=== PATIENT | female | born 1985 ===

== ENCOUNTER 2016-09-01 09:17 | Observation (INO) | payer BC ==
[~2016-09-01 09:17] MED LIST: BUPIVACAINE/EPI 0.5% 30 ML SDV ONE; CLINDAMYCIN 900 MG/DEXTROSE 50 ML IV ONE; LR 1,000 ML IV ONE; PHENAZOPYRIDINE HCL 200 MG TAB PO ONE; SKIN ADHESIVE (DERMABOND) 1 EACH TP ONE
[2016-09-01] MEDS ORDERED: PROPOFOL/EMULSION 500 MG/50 ML BOTTLE IV ONE ×7 (09:49→14:43)
[2016-09-01] MEDS ORDERED: LIDOCAINE 2% 5 ML SDV ONE (09:49)
[2016-09-01] MEDS ORDERED: ROCURONIUM 100 MG/10 ML VIAL ONE ×2 (09:50→14:23)
[2016-09-01] MEDS ORDERED: LIDOCAINE 1% 5 ML SDV ID PRN (09:56)
[2016-09-01] MEDS ORDERED: LR 1,000 ML IV ONE (09:56)
[2016-09-01] MEDS ORDERED: CLINDAMYCIN 900 MG/DEXTROSE/50 ML BAG IV ONE (10:09)
[2016-09-01] MEDS ORDERED: PHENAZOPYRIDINE HCL 200 MG TAB ONE (10:09)
[2016-09-01] MEDS ORDERED: MIDAZOLAM 2 MG/2 ML VIAL ONE (10:34)
[2016-09-01] MEDS ORDERED: ALTEPLASE 2 MG VIAL IVP PRN (11:17)
[2016-09-01] MEDS ORDERED: fentaNYL 250 MCG/5 ML INJ ONE (11:53)
[2016-09-01] MEDS ORDERED: DEXAMETHASONE 4 MG/ML VIAL ONE (12:18)
[2016-09-01] MEDS ORDERED: ONDANSETRON 4 MG/2 ML VIAL ONE (12:19)
[2016-09-01] MEDS ORDERED: METHYLENE BLUE 0.5% 50 MG/10 ML AMP ONE (13:43)
[2016-09-01] MEDS ORDERED: ROCURONIUM 50 MG/5 ML VIAL ONE (14:23)
[2016-09-01] MEDS ORDERED: GLYCOPYRROLATE 0.2 MG/1 ML VIAL ONE ×2 (14:45)
[2016-09-01] MEDS ORDERED: NEOSTIGMINE METHYLSULFATE 5 MG/5 ML SYR ONE (14:46)
[2016-09-01] MEDS ORDERED: KETOROLAC 30 MG/1 ML SDV IVP ONE ×2 (15:09→18:00)
[2016-09-01] MEDS ORDERED: HYDROmorphONE/DILAUDID 1 MG/ML SYR IVP PRN (15:09)
[2016-09-01] MEDS ORDERED: ONDANSETRON 4 MG/2 ML VIAL IVP PRN (15:09)
[2016-09-01] MEDS ORDERED: HYDROCODONE/APAP 5/325 TAB PO PRN (15:09)
[2016-09-01] MEDS ORDERED: DIAZEPAM 10 MG/2 ML SYR IVP PRN (15:09)
--- NOTE | 2016-09-01 15:17 | POSTOPPROG ---
Post Op Note Date of Operation: 09/01/16 Surgeon: Scottie Christie Adjudication Specialist: Riri Richards Anesthesia: GET(General Endotracheal) Pre-op Diagnosis: Endometriosis, pelvic pain Post-op Diagnosis: Same Procedure: Robotic excision of endo, bilat ureterolysis, cystoscopy Findings: Severe endo, both ureters function at end of case. Inf/Abcess present in the surg proc area at time of surgery?: No EBL: Minimal Complications: None Specimen(s): endo
[2016-09-01] MEDS ORDERED: levOFLOXACIN 500 MG/DEXTROSE 100 ML IV SCH (15:30)
[2016-09-01] MEDS ORDERED: fentaNYL 100 MCG/2 ML INJ ONE (15:53)
--- NOTE | 2016-09-01 16:14 | GOP ---
[f rep st] OPERATIVE REPORT DATE OF OPERATION: 09/01/2016 SURGEON: Scottie Christie MD [facility] [employer] [facility] ASSISTANT: Riri Richards CFA. ANESTHESIA: General. PREOPERATIVE DIAGNOSIS: 1. Endometriosis. 2. Pelvic pain. 3. Dyspareunia. POSTOPERATIVE DIAGNOSIS: 1. Endometriosis. 2. Pelvic pain. 3. Dyspareunia. PROCEDURE PERFORMED: 1. Robotic excision of extensive pelvic peritoneum with endometriosis in posterior cul-de-sac, bila teral ovarian fossas, bilateral ureters, vaginal cuff, bladder, bilateral uterosacral ligaments. 2. Bilateral ureterolysis. 3. Excision of rectal lesion. 4. Excision of sigmoid lesions. 5. Cystotomy repair. 6. Cystoscopy. FINDINGS: SPECIMENS: Extensive pelvic peritoneum with endometriosis. ESTIMATED BLOOD LOSS: Less than 20 mL. DESCRIPTION OF PROCEDURE: The patient was taken to the operating room where she was identified. Ge neral anesthesia was administered and found to be adequate. She was then prepared and draped in nor mal sterile fashion in the lithotomy position. A Trejo catheter was placed in her bladder. A biman ual exam was performed. No obvious nodules were palpable. She did have an area at the right corner of the vaginal cuff which had created almost a tunnel cephalad about 1-1/2 to 2 cm. There was a sm aller one in the midline. A 1 cm infraumbilical incision was made through the prior surgical scar. The Veress needle with the CO2 gas lungs advanced into the peritoneal cavity. The abdomen was then insufflated with carbon di oxide gas. The 12 mm trocar, followed by the laparoscope were then inserted. The upper abdomen was examined. There was no evidence of endometriosis on either diaphragm, liver, stomach or gallbladde r. Two lateral ports were placed, 1 in the right and 1 in the left under direct visualization. She then was placed in Trendelenburg position and the da Pily robot docked on the left side. The inst ruments were then brought into the abdominal cavity under direct visualization. The patient was found to have extensive endometriosis along the vaginal cuff, both ureters, the post erior cul-de-sac, both ovarian fossas as well as the bladder dome. A bilateral ureterolysis was required. The peritoneum at the pelvic brim on the left was incised. The ureter was gently dissected free. The dissection was carried distally all the way to the bladde r. The pelvic sidewall and ovarian fossa endometriosis and underlying peritoneum as well as scar ti ssue was completely excised. As the dissection continued down to where the ureter entered the bladd er, there was scarring and endometriosis right at the junction and anteriorly. Very careful dissect ion was performed to excise all of the endometriotic lesion without injuring the ureter. The dissec tion laterally resulted in a 1 mm cystotomy which was repaired at the conclusion of the case. The p eritoneum and endometriosis were then excised from the central portion of the bladder as well as the vaginal cuff. A vaginal stent was placed to better identify the vaginal cuff. A similar procedure was then performed on the right side, requiring a complete ureterolysis from the pelvic brim down t o the bladder. Once this was lateralized again, the entire perineum with endometriosis and underlyi ng scar tissue was completely excised. She also had a nodular and scarred area of endometriosis on the right where the right ureter entered the bladder. This was also completely excised. The manager print ior cul-de-sac peritoneum was then completely excised by opening the vesicovaginal space. The disse ction was carried approximately 5 cm caudad to ensure all endometriosis was removed from the rectova ginal space. The patient had several lesions on the rectum and colon which also were excised. These extended antoinette n approximately 50% into the muscularis. The pelvis was then copiously irrigated with sterile salin e. The cystotomy was repaired with a [id number] suture of 3-0 Vicryl. The bladder was backfil led with saline mixed with methylene blue. No leakage was noted after the 1st layer repair. A 2nd imbricating layer was then performed also with 3-0 Vicryl. Both ureters were peristalsing normally. The abdomen and pelvis were once again reexamined, and no further evidence of endometriosis was se en. Two sheets of Interceed were placed over the surgical field and the pelvis to try to minimize p ostoperative adhesion formation. The robot was then undocked. The fascia was closed with 0 Vicryl, skin with 4-0 Monocryl and surgical adhesive. Cystoscopy was then performed. Both ureters had vigorous jets of urine. The Trejo catheter was rep laced. Anesthesia was reversed, and the patient taken to the PACU awake, in stable condition. COMPLICATIONS: None. DISPOSITION: Patient stable to PACU. /[id number]/MODL
[2016-09-01] MEDS: LR 1,000 ML IV SCH (17:26)
[2016-09-01] MEDS: OXYCODONE/APAP 5/325 TAB PO PRN ×2 (18:49→20:35)
[2016-09-01 22:09] VITALS: RESP 18
[2016-09-01] MEDS ORDERED: PROMETHAZINE HCL 25 MG/ML INJ IV PRN (22:15)
[2016-09-02] MEDS: OXYCODONE/APAP 5/325 TAB PO PRN ×3 (03:03→10:17)
[2016-09-02] MEDS: LR 1,000 ML IV SCH (03:04)
[2016-09-02 06:12] LABS: HEMOGLOBIN 13.3 g/dL (12.6-16.3)
--- NOTE | 2016-09-02 10:36 | GDS ---
[f rep st] DISCHARGE SUMMARY DISCHARGE DIAGNOSES: 1. Endometriosis. 2. Pelvic pain. 3. Dyspareunia. PROCEDURES: 1. Robotic excision of extensive endometriosis throughout the posterior cul-de- sac, bilateral ovarian fossas, and both ureters, including lesions on the sigmoid and rectum. 2. Bilateral ureterolysis. 3. Cystotomy repair. 4. Cystoscopy. HOSPITAL COURSE: The patient is a 31-year-old female with a long history of endometriosis. Unfortunately, she developed recurrence and pain once again. She was taken to the operating room on 09/01/2016 where she underwent the above procedures without complications. Her postoperative course was uneventful. She was observed overnight for IV analgesia and antiemetic medication. The following morning, she was ambulating, voiding, tolerating a general diet. She is discharged home on postoperative day #1 in good condition. Medications included Percocet, Phenergan and ibuprofen. She also was given a prescription for Aygestin 5 mg. One of her lesions on the bladder required an intentional cystotomy which was closed with a 2 layered closure [id number] sutures. She was discharged home with a Trejo catheter in place. Her was instructed on how to remove it on postoperative day #8. We will be following up on the phone since the patient lives in [place]. /[id number]/MODL MTDD
[2016-09-02 10:47] VITALS: BP 104/64; PULSE 73; TEMP 98.4; O2SAT 98
== END 2016-09-02 11:25 | disposition home or self-care (01) ==
LOC: FSGY 09:17 → FOB 16:58
PROVIDERS: ADMIT Obstetrics & Gynecology; ATTEND Obstetrics & Gynecology
PROC: 0UN44ZZ Release Uterine Supporting Structure, Percutaneous Endoscopic Approach (ICD-10-PCS; principal; 2016-09-01 10:45)
PROC: 03H Upper Arteries, Insertion (ICD-10-PCS; principal; 2016-09-01 10:45)
PROC: 0TNB4ZZ Release Bladder, Percutaneous Endoscopic Approach (ICD-10-PCS; principal; 2016-09-01 10:45)
PROC: 0DBP4ZZ Excision of Rectum, Percutaneous Endoscopic Approach (ICD-10-PCS; principal; 2016-09-01 10:45)
PROC: 0UNF4ZZ Release Cul-de-sac, Percutaneous Endoscopic Approach (ICD-10-PCS; principal; 2016-09-01 10:45)
PROC: 0DBE4ZZ Excision of Large Intestine, Percutaneous Endoscopic Approach (ICD-10-PCS; principal; 2016-09-01 10:45)
PROC: 0TB74ZZ Excision of Left Ureter, Percutaneous Endoscopic Approach (ICD-10-PCS; principal; 2016-09-01 10:45)
PROC: 0TB64ZZ Excision of Right Ureter, Percutaneous Endoscopic Approach (ICD-10-PCS; principal; 2016-09-01 10:45)
PROC: 8E0W4CZ Robotic Assisted Procedure of Trunk Region, Percutaneous Endoscopic Approach (ICD-10-PCS; principal; 2016-09-01 10:45)
DX: N80.3 Endometriosis of pelvic peritoneum (principal); N80.1 Endometriosis of ovary; N80.8 Other endometriosis; N94.10 Unspecified dyspareunia; N32.9 Bladder disorder, unspecified
CPT/HCPCS: 36569; 58660; 77001; C1751; C1765; G0378; J1100; J1885; J1956; J2250; J2405; J2550; J2704; J2710; J3010; Q9968